=== PATIENT | female | born 1950 ===

== ENCOUNTER 2021-01-21 08:00 | Day surgery (SDC) | payer MEDICARE, BC ==
[~2021-01-21 08:00] MED LIST: Lactated Ringers 1,000 ML IV SCH; Propofol 200 MG/20 ML SDV ONE; fentaNYL 100 MCG/2 ML SDV ONE
--- NOTE | 2021-01-21 09:01 | PCM.PREANE ---
Preanesthetic Assessment - Anesthesia/Transfusion/Family Hx Anesthesia History: Prior Anesthesia Without Reaction Family History of Anesthesia Reaction: No Transfusion History: No Prior Transfusion(s) - Review of Systems General: No Symptoms Pulmonary: No Symptoms Cardiovascular: No Symptoms Gastrointestinal: No Symptoms Neurological: No Symptoms Other: Reports: None - Physical Assessment NPO Status Date: 01/21/21 NPO Status Time: 00:01 Vital Signs: Last Vital Signs Temp 96.1 F L 01/21/21 08:17 Pulse 84 01/21/21 08:17 Resp 16 01/21/21 08:17 BP 110/54 L 01/21/21 08:17 Pulse Ox 94 L 01/21/21 08:17 Height: 5 ft 6 in Weight: 180 lb ASA Class: 2 Mental Status: Alert & Oriented x3 Airway Class: Mallampati = 2 Dentition: Reports: Normal Dentition ROM/Head Extension: Limited/Partial Lungs: Clear to Auscultation, Normal Respiratory Effort Cardiovascular: Regular Rate, Regular Rhythm - Allergies Allergies/Adverse Reactions: Allergies Allergy/AdvReac Type Severity Reaction Status Date / Time adhesive tape Allergy Itching Verified 01/21/21 08:22 Sulfa (Sulfonamide Allergy Itching Verified 01/21/21 08:22 Antibiotics) - Anesthesia Plan Pre-Op Medication Ordered: None - Acknowledgements Anesthesia Type Planned: General Anesthesia Pt an Appropriate Candidate for the Planned Anesthesia: Yes Alternatives and Risks of Anesthesia Discussed w Pt/Guardian: Yes Pt/Guardian Understands and Agrees with Anesthesia Plan: Yes Additional Comments: npo tara anxiety depression asthma daily inhalers htn no cv problems aodm fibromyalgia C5-7 fusion Oct 2020 tob none etoh rare PreAnesthesia Questionnaire HEENT History: Reports: Impaired Vision, Other (See Below) Other HEENT History: wears glasses, has lower permanent dental retainer Cardiovascular History: Reports: High Cholesterol, Hypertension Respiratory History: Reports: Asthma, Sleep Apnea Other Respiratory History: uses CPAP Gastrointestinal History: Reports: Colon Polyp, GERD, Hiatal Hernia Genitourinary History: Reports: UTI, Recurrent PSYCHIATRIC SECURITY NURSE History: Reports: , Spontaneous Musculoskeletal History: Reports: Back Pain, Chronic, Fibromyalgia, Neck Pain, Chronic, Osteoarthritis Neurological History: Reports: None Psychiatric History: Reports: Anxiety, Depression Endocrine/Metabolic History: Reports: Diabetes, Type II Hematologic History: Reports: None Immunologic History: Reports: None Oncologic (Cancer) History: Reports: None Dermatologic History: Reports: None - Past Surgical History Head Surgeries/Procedures: Reports: None HEENT Surgical History: Reports: Eye Surgery Cardiovascular Surgical History: Reports: None Respiratory Surgical History: Reports: None GI Surgical History: Reports: Appendectomy, Colonoscopy Female Surgical History: Reports: Breast Biopsy, Oophorectomy, Other (See Below) Other Female Surgeries/Procedures: right oopherectomy, breast bx x5 Endocrine Surgical History: Reports: None Neurological Surgical History: Reports: C-Spine Other Neurological Surgeries/Procedures: neck fusion Musculoskeletal Surgical History: Reports: None Oncologic Surgical History: Reports: None Dermatological Surgical History: Reports: None - SUBSTANCE USE Tobacco Use Status *Q: Never Tobacco User Recreational Drug Use History: No - HOME MEDS Home Medications: Home Meds Albuterol [Ventolin HFA] 2 puff INH ASDIRECTED PRN 12/01/15 [History] Calcium Carbonate/Vitamin D3 [Calcium 600 + Vit D Tablet] 1 tab PO DAILY 12/01/15 [History] Cholecalciferol (Vitamin D3) [Vitamin D3] 5,000 units PO WEEKLY 12/01/15 [History] DULoxetine HCl [Duloxetine HCl] 60 mg PO DAILY 12/01/15 [History] Fluticasone Propionate [Flovent HFA 220 MCG] 1 inhalation INH DAILY 12/01/15 [History] Multivitamin [Multivitamins] 1 tab PO DAILY 12/01/15 [History] buPROPion [buPROPion XL] 150 mg PO DAILY 12/01/15 [History] Modafinil [Provigil] 200 mg PO DAILY 01/18/21 [History] atorvaSTATin Calcium [Atorvastatin Calcium] 10 mg PO DAILY 01/18/21 [History] buPROPion HCL [Wellbutrin Xl] 300 mg PO DAILY 01/18/21 [History] lisinopriL [Lisinopril] 5 mg PO DAILY 01/18/21 [History] metFORMIN HCl [Metformin HCl] 2 tab PO BID 01/18/21 [History] Cinnamon Bark [Cinnamon] 500 mg PO DAILY 01/19/21 [History] L.acidoph,Paracasei, B.lactis [Probiotic] 1 tab PO DAILY 01/19/21 [History] [place]-3/DHA/Epa/Fish Oil [[place] 3 500 Softgel] 1 tab PO DAILY 01/19/21 [History] Turmeric Root Extract [Turmeric] 500 mg PO DAILY 01/19/21 [History] - CURRENT (IN HOUSE) MEDS Current Meds: Current Medications Lactated Ringer's (Ringers, Lactated) 1,000 mls @ 125 mls/hr IV ASDIRECTED MARI Last Admin: 01/21/21 08:22 Dose: 125 mls/hr Documented by: Discontinued Medications Fentanyl (Fentanyl 100 Mcg/2 Ml Sdv) Confirm Administered Dose 100 mcg .ROUTE .STK-MED ONE Stop: 01/21/21 06:57 Lidocaine HCl (Lidocaine 1% 5 Ml Sdv) Confirm Administered Dose 5 ml .ROUTE .STK-MED ONE Stop: 01/21/21 06:55 Propofol (Propofol 200 Mg/20 Ml Sdv) Confirm Administered Dose 200 mg .ROUTE .STK-MED ONE Stop: 01/21/21 06:56 Propofol (Propofol 200 Mg/20 Ml Sdv) Confirm Administered Dose 200 mg .ROUTE .STK-MED ONE Stop: 01/21/21 07:07
[2021-01-21] MEDS ORDERED: Lactated Ringers 1,000 ML IV SCH (10:45)
--- NOTE | 2021-01-21 10:45 | PCM.OPNOTE ---
- General Post-Op/Procedure Note Date of Surgery/Procedure: 01/21/21 Operative Procedure(s): Esophagogastroduodenoscopy w/ gastric biopsy. Colonoscopy. Pre Op Diagnosis: Chronic gastroesophageal disease. Personal history of colon polyps. Post-Op Diagnosis: Chronic gastritis. No evidence of colonic neoplasia. Anesthesia Technique: MAC (ASA III) Primary Surgeon: Ezekiel Bagley Deputy Court: Lesly Love Condition: Good Free Text/Narrative:: DICTATION [id number] CPT CODE 22602/[id number]
--- NOTE | 2021-01-21 10:53 | PCM.POSTAN ---
POST ANESTHESIA ASSESSMENT - MENTAL STATUS Mental Status: Alert (no anesthetic problems), Oriented - VITAL SIGNS Vital Signs: Last Vital Signs Temp 96.1 F L 01/21/21 08:17 Pulse 74 01/21/21 10:48 Resp 16 01/21/21 10:48 BP 123/70 01/21/21 10:48 Pulse Ox 93 L 01/21/21 10:48 - RESPIRATORY Respiratory Status: Respiratory Rate WNL, Airway Patent, O2 Saturation Stable - CARDIOVASCULAR CV Status: Pulse Rate WNL, Blood Pressure Stable - GASTROINTESTINAL GI Status: No Symptoms - POST OP HYDRATION Hydration Status: Adequate & Stable
[2021-01-21 11:05] VITALS: BP 119/56; PULSE 78
--- NOTE | 2021-01-21 11:15 | PCM48HPAN ---
Post Anesthesia Note - EVALUATION WITHIN 48HRS OF ANESTHETIC Vital Signs in Normal Range: Yes Patient Participated in Evaluation: Yes Respiratory Function Stable: Yes Airway Patent: Yes Cardiovascular Function Stable: Yes Hydration Status Stable: Yes Pain Control Satisfactory: Yes Nausea and Vomiting Control Satisfactory: Yes Mental Status Recovered: Yes Vital Signs: Last Vital Signs Temp 97.3 F 01/21/21 10:55 Pulse 78 01/21/21 10:55 Resp 14 01/21/21 10:55 BP 119/56 L 01/21/21 10:55 Pulse Ox 94 L 01/21/21 10:55
--- NOTE | 2021-01-21 14:58 | OR ---
SURGEON: Ezekiel Bagley M.D. DATE OF PROCEDURE: 01/21/2021 OPERATION PERFORMED: Esophagogastroduodenoscopy with gastric biopsy. PRIMARY SURGEON: Ezekiel Baglye M.D. EMERGENCY MEDICAL TECHNICIAN BASIC: parts room assistant: KEV Horta student. ANESTHESIA: MAC. ASA CLASSIFICATION: III. PREOPERATIVE DIAGNOSIS: Chronic gastroesophageal reflux disease. POSTOPERATIVE DIAGNOSIS: Mild chronic gastritis. DESCRIPTION OF PROCEDURE: The patient was taken to the endoscopy room and positioned on the endoscopy table in the left lateral decubitus position. Time-out was called for appropriate identification of the patient and procedure. Monitored anesthesia care was provided. The bite block was placed between the patient's teeth. The gastroscope was inserted through the bite block and advanced into the oropharynx and subsequently through the esophagus and stomach into the duodenum, where examination was now carried out in a retrograde fashion. The duodenum showed no acute inflammatory changes or ulcerations. The stomach did show mild to moderate chronic gastritis. Antral biopsies were obtained to look for the presence of Helicobacter pylori. The gastroscope was retroflexed to then visualize the proximal stomach. No acute changes were noted in the proximal stomach, and there was no hiatal hernia noted from below. The gastroscope was then straightened and slowly withdrawn. The GE junction was well defined and showed no acute inflammatory changes or ulcerations. The esophagus itself demonstrated poor contractility with tertiary contractions, but no significant longitudinal stripping waves. The vocal cords were briefly visualized as the scope was withdrawn and noted to move symmetrically. The gastroscope was then removed with the patient having tolerated this portion of the procedure well. Following colonoscopy, she was taken to recovery room in stable condition. DEONNA / LEONORA /[id number] KAY
--- NOTE | 2021-01-21 15:05 | OR ---
SURGEON: Ezekiel Bagley M.D. DATE OF PROCEDURE: 01/21/2021 OPERATION PERFORMED: Colonoscopy. PRIMARY SURGEON: Ezekiel Bagley M.D. TOWER EQUIPMENT REPAIRER: wet process miller head assistant: KEV Horta student. ANESTHESIA: MAC. ASA CLASSIFICATION: III. PREOPERATIVE DIAGNOSIS: Personal history of colon polyps. POSTOPERATIVE DIAGNOSIS: No evidence of neoplasia. DESCRIPTION OF PROCEDURE: With the patient having completed upper GI endoscopy, she was maintained in the left lateral decubitus position. The colonoscope was inserted into the rectum and advanced with moderate difficulty to the cecum. The cecum was identified by internal landmarks and external pressure. The prep was excellent. The cecum, ascending colon, hepatic flexure, transverse colon, splenic flexure, descending colon, sigmoid colon, and rectum were very well visualized. No tumors, polyps, diverticula, or angiodysplastic changes were noted anywhere in the lower gastrointestinal tract. The colonoscope had been retroflexed in the cecum to visualize the ascending colon from below and was also retroflexed in the rectum to visualize the anal orifice from above. Once the scope was withdrawn to the rectum and retroflexed, no significant hemorrhoidal changes were noted. The colonoscope was then straightened, the rectum aspirated, and the colonoscope removed. The patient tolerated the procedure well and was taken to recovery room in stable condition. DEONNA / LEONORA /[id number]
== END 2021-01-21 11:20 | disposition home or self-care (01) ==
LOC: MW.SDS 08:00
PROVIDERS: ATTEND Surgery
DX: Z12.11 Encounter for screening for malignant neoplasm of colon (principal); K31.89 Other diseases of stomach and duodenum; K21.9 Gastro-esophageal reflux disease without esophagitis; I10 Essential (primary) hypertension; E78.00 Pure hypercholesterolemia, unspecified; G47.30 Sleep apnea, unspecified; J45.909 Unspecified asthma, uncomplicated; E11.9 Type 2 diabetes mellitus without complications; E66.9 Obesity, unspecified; Z68.29 Body mass index [BMI] 29.0-29.9, adult; Z88.2 Allergy status to sulfonamides; Z91.09 Other allergy status, other than to drugs and biological substances; Z79.899 Other long term (current) drug therapy; Z86.010 Personal history of colon polyps; Z98.890 Other specified postprocedural states
CPT/HCPCS: 43239; G0105; J2704; J3010; J7120; 00813